=== PATIENT | female | born 2000 | race African-American/Black ===

== ENCOUNTER 2022-10-16 11:10 | Emergency (ER) | payer MEDICAID ==
[~2022-10-16] VITALS: Ht 170.2 cm; Wt 59.0 kg
[2022-10-16 11:27] VITALS: BP 159/82
== END 2022-10-16 17:05 | disposition left against medical advice (07) ==
LOC: ER 11:34
DX: Z53.21 Procedure and treatment not carried out due to patient leaving prior to being seen by health care provider (principal)